=== PATIENT | female | born 1960 | race Caucasian/White ===

== ENCOUNTER 2017-02-22 15:51 | Inpatient (IN) | payer OTHER ==
--- NOTE | ~2017-02-22 | DS ---
Discharge Summary [facility] [address] [place]. [address] NAME: GIDEON PRINGLE : 62 STATUS : DIS IN PAT#: [id number] AGE: 56 ADM/REG DATE : 02/22/17 MR#: [id number] REPORT SERV DATE: 02/26/17 DICTATED BY: HALLE JUDGE DATE: 02/25/17 REPORT STATUS : Draft TRANSCRIBED BY: MODL DATE: 02/25/17 ADMISSION DATE: 02/22/2017 DISCHARGE DATE: 02/25/2017 DISCHARGE DIAGNOSES: 1. Acute heart failure systolic dysfunction, combined right ventricle and left ventricular dysfunction. She was treated with diuretics. 2. Tobacco abuse. 3. Atrial fibrillation, rate controlled. 4. Obesity. 5. Hard to treat with no primary care physician or insurance. PROCEDURE: Echocardiogram was performed that showed mildly decreased left ventricular systolic function with an estimated ejection fraction of 45%. Also had a decreased right ventricular systolic dysfunction with moderate tricuspid regurg. HISTORY OF PRESENT ILLNESS: This is a 56-year-old female patient, who came to the hospital with short of breath. Please see dictated H and P. HOSPITAL COURSE: She was admitted to the hospital with a new finding of atrial fibrillation and heart failure. She was told by a physician in the past, she had heart failure and also hypertension; however, did not continue the medication and also does not have any primary care physician. Unfortunately, she continued to smoke cigarettes. At this time she was found to have heart failure confirmed. She was treated with IV Bumex 1 mg every 8 hours, and for last three days she has been well diuresed. She is not requiring any oxygen. She has symptoms treated. We are going to continue the Lasix 40 mg once in the morning time as a regular medication. Atrial fibrillation was noted and rate control was considered to be the treatment plan. She is taking metoprolol and is tolerating well. Anticoagulation was decided to be Xarelto with the help of Inpatient Pharmacy from here, and we are going to also provide [facility]. Therefore, the Xarelto two-month supply is given from the hospital for anticoagulation issue. She voiced that she will stop smoking after a long discussion with the patient regarding smoking cessation and cardiovascular risks. Overall, as she had a significant improvement and maximized inpatient benefit, the patient will be discharged home in stable condition to continue maximized medical treatment. DISCHARGE MEDICATIONS: 1. Aspirin 81 mg once a day. 2. Lipitor 10 mg once a day. 3. Furosemide 40 mg once a day. 4. Lisinopril 5 mg once a day. 5. Lopressor 50 mg twice a day. Discharge Summary [facility] [address] [place]. [address] NAME: GIDEON PRINGLE : 62 STATUS : DIS IN PAT#: [id number] AGE: 56 ADM/REG DATE : 02/22/17 MR#: [id number] REPORT SERV DATE: 02/26/17 DICTATED BY: HALLE JUDGE DATE: 02/25/17 REPORT STATUS : Draft TRANSCRIBED BY: CASIE DATE: 02/25/17 6. Potassium 40 mEq once a day. 7. Nicotine patch given for two-week supply. TIME SPENT: More than 30 minutes on discharge, coordination, and patient education. DISPOSITION: The patient is discharged to home in stable condition. Need to follow up at [facility]. EKL/MODL Halle Judge M.D. / [id number] CC: Halle Judge M.D.
--- NOTE | ~2017-02-22 | HP ---
History And Physical [facility] [id number] [place]. [address] NAME: GIDEON PRINGLE : 62 STATUS : ADM IN [facility]#: [id number] AGE: 56 ADM/REG DATE : 02/22/17 MR#: [id number] REPORT SERV DATE: 02/23/17 DICTATED BY: JORY ROCHE DATE: 02/22/17 REPORT STATUS : Draft TRANSCRIBED BY: MODL DATE: 02/22/17 DATE OF ADMISSION: 02/22/2017 CHIEF COMPLAINT: Shortness of breath with a rapid heart rate. HISTORY OF PRESENT ILLNESS: The patient is a 56-year-old female with past medical history, the patient does report hypertension and possibly heart failure who presents after having months of swelling, epigastric pain, shortness of breath and feeling of fast heart rate. The patient reports that pain has been above her belt line. It has been constant, moderate, non-radiating associated with shortness of breath, swelling. The patient reports that she has had bilateral lower extremity edema. Activity is worsened with shortness of breath and relieved by nothing. No improving symptoms. The patient has reported that she has had a rapid heart rate for months now and as far as seven years ago, she was also told she had heart failure but since she did have not insurance was never able to follow up with anybody. REVIEW OF SYSETMS: For additional review of systems; GENERAL: No fevers or chills. EYES: No eye pain or visual changes. ENT: Does have poor dentition with loss of all of her teeth as they have slowly broken off and could be source of where she thought could be infection at times but no current dental pain or sore throat. NEURO: No headache or confusion. SKIN: No rashes or bruising. RESPIRATORY: Positive shortness of breath with dyspnea on exertion where she cannot even walk to the bathroom without getting short of breath. CV: No chest pain, but fast heart rate. Bilateral edema. Three pillow orthopnea, decreased exercise tolerance. GI: Soft. Does have mild abdominal discomfort but no nausea, vomiting. No dark stools. : No dysuria or hematuria. MUSCULOSKELETAL: No myalgias or arthralgias above baseline but does have chronic back pain. ENDO: No increased fatigue or polyuria. HEME: No bleeding or bruising. IMMUNOLOGIC: No rhinorrhea. PSYCH: Mild anxiety, depression at times that have been chronic. PAST MEDICAL HISTORY: The patient reports that she does not go to doctor so she does not know but has been told in the past, she has hypertension and heart failure. PAST SURGICAL HISTORY: Gallbladder, laparoscopy for ovarian cyst and urethra enlarged when she was young. SOCIAL HISTORY: She is one pack per day smoker down to half pack per day. Started at age 38 approximately 18 years ago due to anxiety, approximately drinks 3 beers a week but no history of withdrawals. Denies any illicits at this time. History And Physical [place] [id number] [facility] [place]. [address] NAME: GIDEON PRINGLE : 62 STATUS : ADM IN [facility]#: [id number] AGE: 56 ADM/REG DATE : 02/22/17 MR#: [id number] REPORT SERV DATE: 02/23/17 DICTATED BY: JORY ROCHE DATE: 02/22/17 REPORT STATUS : Draft TRANSCRIBED BY: CASIE DATE: 02/22/17 FAMILY HISTORY: Of hypertension, alcoholism, and anxiety. ALLERGIES: SHE DOES HAVE SULFA ALLERGY. MEDICATIONS: Include aspirin. PHYSICAL EXAMINATION: VITAL SIGNS: The patient blood pressure initially was 175/118, pulse was initially 158 currently down to 129/98 with a pulse of 97, temperature 97.8, respirations 18, and O2 sats 100% on room air. GENERAL: No acute distress. Obese. EYES: No scleral icterus. EOMI. ENT: Loss of all dentition with very poor dental bridges. RESPIRATORY: Rales bilaterally, equal chest expansion. No wheezes. CV: Irregularly irregular on diltiazem drip with bilateral edema, systolic ejection murmur. Mild JVD. GI: Does have mild increased tenderness to palpation in upper wall with what appears to be hernia defect, not currently reproducible. No organomegaly. : Deferred but does have Corea. MUSCULOSKELETAL: Moves all extremities x4. SKIN: Warm and dry. HEME: No bleeding or bruising. NEURO: Alert and oriented, moves all extremities x4. PSYCH: Mildly anxious. LABS: Urinalysis with moderate blood, but does have Corea, negative leukocyte esterase and nitrites. BNP 404.9. BMP grossly within normal limits with a BUN and creatinine of 7 and 0.91, troponin negative. CBC grossly within normal limits. Mildly elevated MCV of 100, INR 1.2. EKG; atrial fibrillation with RVR, rate of 143, QTc 484. Chest x-ray; cardiomegaly with basilar congestion left greater than right. Official read still pending. ASSESSMENT AND PLAN: 1. Atrial fibrillation with RVR. 2. Likely congestive heart failure exacerbation. 3. Chronic back pain. 4. Tobacco use. 5. Anxiety. 6. Hypertension. 7. Abdominal pain. PLAN: 1. For atrial fibrillation with RVR, she is reporting symptoms for months. Start on metoprolol, currently on diltiazem drip. Lytes currently at goal. Check TSH, check History And Physical [address] [address] NAME: GIDEON PRINGLE : 62 STATUS : ADM IN PAT#: [id number] AGE: 56 ADM/REG DATE : 02/22/17 MR#: [id number] REPORT SERV DATE: 02/23/17 DICTATED BY: JORY ROCHE DATE: 02/22/17 REPORT STATUS : Draft TRANSCRIBED BY: CASIE DATE: 02/22/17 UDS. 2. CHF exacerbation. Reports 2-3 pillow orthopnea, does have a CHADS-VASc score approximately 3 for atrial fibrillation. She will need anticoagulation prior to discharge. She was told had she had heart failure approximately seven years ago but did not follow up secondary to insurance reasons. Case Management assist heart failure protocol initiated. We will check echocardiogram, start YAZMIN inhibitor, beta maegan, aspirin, and statin. 3. Chronic back pain, p.r.n. 4. Tobacco use. Discussed and also placed nicotine patch. 5. Anxiety. Check TSH, nicotine patch. 6. Hypertension, diltiazem drip started, YAZMIN inhibitor, beta maegan titrate as needed. 7. Abdominal pain. Does have central obesity. New abdominal rash. We will monitor. Check plain film. All questions answered to the patient at bedside. I anticipate greater than two midnight inpatient stay. DDN/SOTOL Jory Roche MD / [id number] CC: Halle Watkins M.D.
[2017-02-22 18:37] LABS: BASOPHILS 0.3 %; BASOPHILS ABSOLUTE 0.02 10/3/uL (0.0-0.16); EOSINOPHILS 0.8 %; EOSINOPHILS ABSOLUTE 0.05 10/3/uL (0.0-0.53); HEMATOCRIT 41.6 % (36.0-48.0); HEMOGLOBIN 14.1 g/dL (12.0-16.0); IMMATURE GRANULOCYTES 0.2 %; IMMATURE GRANULOCYTES ABSOLUTE 0.01 10/3/uL (0.0-0.11); LYMPHOCYTES 20.2 %; LYMPHOCYTES ABSOLUTE 1.19 10/3/uL (0.67-4.30); MEAN CORPUS HGB CONC 33.9 g/dL (32.0-36.0); MEAN CORPUSCULAR HEMOGLOB 33.9 pg (26.0-34.0); MEAN PLATELET VOLUME 10.3 fL (9.2-13.0); MONOCYTES 10.9 %; MONOCYTES ABSOLUTE 0.64 10/3/uL (0.21-1.20); NEUTROPHILS 67.6 %; NEUTROPHILS ABSOLUTE 3.98 10/3/uL (2.02-8.40); PLATELET COUNT 150 10/3/uL (150-400); RBC DISTRIBUTION WIDTH 14.9 % (12.0-16.0); RED CELL COUNT 4.16 10/6/uL (4.0-5.6); WHITE BLOOD CELLS 5.9 10/3/uL (4.5-10.5)
[2017-02-22 18:39] LABS: MANUAL DIFF NO %
[2017-02-22 18:46] LABS: INTERNATIONAL NORMAL RATI 1.2 UNITS (-)
[2017-02-22 18:47] LABS: PARTIAL THROMBO TIME 30.1 SEC (22.5-37.2)
[2017-02-22 18:54] LABS: BUN (BLOOD UREA NITROGEN) 7 MG/DL (6-23); CALCIUM, SERUM 9.4 MG/DL (8.5-10.4); CHEST PAIN PROFILE TAT 0 Hrs 21 Mins; CHLORIDE, SERUM 105 MMOL/L (96-112); CO2 (CARBON DIOXIDE) 25 MMOL/L (24-34); CREATININE 0.91 MG/DL (0.55-1.02); GFR AFRICAN AMERICAN 82 ML/MIN (>=60); GFR NON AFRICAN AMERICAN 71 ML/MIN (>=60); GLUCOSE, SERUM 98 MG/DL (60-99); POTASSIUM, SERUM 4.5 MMOL/L (3.5-5.3); SODIUM, SERUM 138 MMOL/L (135-148); TROPONIN I <0.02 NG/ML (<0.05)
[2017-02-22] MEDS ORDERED: HALF81 PO (20:16)
[2017-02-22 20:53] LABS: ASCORBIC ACID (UR NOT ORDER) NEG (NEG); BILIRUBIN, URINE NEGATIVE (NEG); ER URINALYSIS TAT 0 Hrs 08 Mins; KETONE, URINE NEGATIVE (NEG); LEUKOCYTE ESTERASE(NOT OR NEG (NEG); NITRITE (URINE) NEG (NEG); WBC (NOT ORDERED) (RFLEX) < 1 (0-5)
[2017-02-23 02:50] LABS: CALCIUM, SERUM 8.9 MG/DL (8.5-10.4); CHLORIDE, SERUM 105 MMOL/L (96-112); CO2 (CARBON DIOXIDE) 24 MMOL/L (24-34); GFR AFRICAN AMERICAN 83 ML/MIN (>=60); GFR NON AFRICAN AMERICAN 72 ML/MIN (>=60); SODIUM, SERUM 138 MMOL/L (135-148); TROPONIN I <0.02 NG/ML (<0.05)
[2017-02-23 02:52] LABS: BUN (BLOOD UREA NITROGEN) 11 MG/DL (6-23); GLUCOSE, SERUM 122 MG/DL (60-99); POTASSIUM, SERUM 3.5 MMOL/L (3.5-5.3)
[2017-02-23 05:43] LABS: BASOPHILS 0.4 %; BASOPHILS ABSOLUTE 0.02 10/3/uL (0.0-0.16); EOSINOPHILS 0.8 %; EOSINOPHILS ABSOLUTE 0.04 10/3/uL (0.0-0.53); HEMATOCRIT 38.6 % (36.0-48.0); IMMATURE GRANULOCYTES 0.2 %; IMMATURE GRANULOCYTES ABSOLUTE 0.01 10/3/uL (0.0-0.11); LYMPHOCYTES 16.8 %; LYMPHOCYTES ABSOLUTE 0.88 10/3/uL (0.67-4.30); MEAN CORPUS HGB CONC 33.7 g/dL (32.0-36.0); MEAN CORPUSCULAR HEMOGLOB 33.6 pg (26.0-34.0); MEAN CORPUSCULAR VOLUME 99.7 fL (80-100); MEAN PLATELET VOLUME 10.6 fL (9.2-13.0); MONOCYTES 13.7 %; MONOCYTES ABSOLUTE 0.72 10/3/uL (0.21-1.20); NEUTROPHILS 68.1 %; NEUTROPHILS ABSOLUTE 3.58 10/3/uL (2.02-8.40); PLATELET COUNT 138 10/3/uL (150-400); RBC DISTRIBUTION WIDTH 14.9 % (12.0-16.0); RED CELL COUNT 3.87 10/6/uL (4.0-5.6); WHITE BLOOD CELLS 5.3 10/3/uL (4.5-10.5)
[2017-02-23 05:44] LABS: MANUAL DIFF NO %
[2017-02-23 07:52] LABS: AMPHETAMINES (NOT ORD) NEG (NEG); BARBITURATES (NOT ORDERED NEG (NEG); BENZODIAZEPINES (NOT ORD) NEG (NEG); CANNABINOIDS (THC) NEG (NEG); COCAINE (NOT ORDERED) NEG (NEG); OPIATES NEG (NEG); PHENCYCLIDINE(PCP) NEG (NEG); TRICYCLICS NEG (NEG)
[2017-02-23 13:21] LABS: BASOPHILS 0.2 %; BASOPHILS ABSOLUTE 0.01 10/3/uL (0.0-0.16); EOSINOPHILS 0.8 %; EOSINOPHILS ABSOLUTE 0.05 10/3/uL (0.0-0.53); HEMATOCRIT 38.3 % (36.0-48.0); HEMOGLOBIN 12.9 g/dL (12.0-16.0); IMMATURE GRANULOCYTES 0.2 %; IMMATURE GRANULOCYTES ABSOLUTE 0.01 10/3/uL (0.0-0.11); LYMPHOCYTES 11.9 %; LYMPHOCYTES ABSOLUTE 0.74 10/3/uL (0.67-4.30); MEAN CORPUS HGB CONC 33.7 g/dL (32.0-36.0); MEAN CORPUSCULAR HEMOGLOB 33.6 pg (26.0-34.0); MEAN CORPUSCULAR VOLUME 99.7 fL (80-100); MEAN PLATELET VOLUME 10.4 fL (9.2-13.0); MONOCYTES 12.6 %; MONOCYTES ABSOLUTE 0.78 10/3/uL (0.21-1.20); NEUTROPHILS 74.3 %; NEUTROPHILS ABSOLUTE 4.61 10/3/uL (2.02-8.40); PLATELET COUNT 140 10/3/uL (150-400); RED CELL COUNT 3.84 10/6/uL (4.0-5.6); WHITE BLOOD CELLS 6.2 10/3/uL (4.5-10.5)
[2017-02-23 13:22] LABS: MANUAL DIFF NO %
[2017-02-23 13:45] LABS: ALBUMIN 3.5 G/DL (3.5-5.0); ALKALINE PHOSPHATASE 58 U/L (45-117); BUN (BLOOD UREA NITROGEN) 9 MG/DL (6-23); CALCIUM, SERUM 9.1 MG/DL (8.5-10.4); CHLORIDE, SERUM 104 MMOL/L (96-112); CO2 (CARBON DIOXIDE) 23 MMOL/L (24-34); CREATININE 0.84 MG/DL (0.55-1.02); FREE T4 1.28 NG/DL (0.76-1.46); GFR AFRICAN AMERICAN 91 ML/MIN (>=60); GFR NON AFRICAN AMERICAN 78 ML/MIN (>=60); GLOBULIN 3.4 G/DL (2.5-4.1); GLUCOSE, SERUM 117 MG/DL (60-99); PHOSPHORUS, SERUM 3.6 MG/DL (2.5-4.5); POTASSIUM, SERUM 3.8 MMOL/L (3.5-5.3); SGPT(ALT) 34 U/L (5-65); SODIUM, SERUM 138 MMOL/L (135-148); TOTAL BILIRUBIN 1.6 MG/DL (0-1.2); TOTAL PROTEIN 6.9 G/DL (6.0-8.5); TROPONIN I <0.02 NG/ML (<0.05)
[2017-02-23 13:49] LABS: SGOT(AST) 25 U/L (5-40)
[2017-02-23 15:47] LABS: PROCALCITONIN <0.05 ng/mL (<0.5)
[2017-02-24 06:10] LABS: ALBUMIN 3.3 G/DL (3.5-5.0); BUN (BLOOD UREA NITROGEN) 10 MG/DL (6-23); CALCIUM, SERUM 8.8 MG/DL (8.5-10.4); CHLORIDE, SERUM 103 MMOL/L (96-112); CO2 (CARBON DIOXIDE) 27 MMOL/L (24-34); CREATININE 0.97 MG/DL (0.55-1.02); GFR AFRICAN AMERICAN 76 ML/MIN (>=60); GFR NON AFRICAN AMERICAN 66 ML/MIN (>=60); GLUCOSE, SERUM 117 MG/DL (60-99); POTASSIUM, SERUM 3.4 MMOL/L (3.5-5.3); SODIUM, SERUM 141 MMOL/L (135-148)
[2017-02-24 06:11] LABS: BASOPHILS 0.2 %; BASOPHILS ABSOLUTE 0.01 10/3/uL (0.0-0.16); EOSINOPHILS 0.8 %; EOSINOPHILS ABSOLUTE 0.04 10/3/uL (0.0-0.53); HEMATOCRIT 40.1 % (36.0-48.0); HEMOGLOBIN 13.5 g/dL (12.0-16.0); IMMATURE GRANULOCYTES 0.2 %; IMMATURE GRANULOCYTES ABSOLUTE 0.01 10/3/uL (0.0-0.11); LYMPHOCYTES 23.3 %; LYMPHOCYTES ABSOLUTE 1.13 10/3/uL (0.67-4.30); MEAN CORPUS HGB CONC 33.7 g/dL (32.0-36.0); MEAN CORPUSCULAR HEMOGLOB 33.8 pg (26.0-34.0); MEAN CORPUSCULAR VOLUME 100.5 fL (80-100); MEAN PLATELET VOLUME 10.6 fL (9.2-13.0); MONOCYTES 12.6 %; MONOCYTES ABSOLUTE 0.61 10/3/uL (0.21-1.20); NEUTROPHILS 62.9 %; NEUTROPHILS ABSOLUTE 3.06 10/3/uL (2.02-8.40); PHOSPHORUS, SERUM 4.6 MG/DL (2.5-4.5); PLATELET COUNT 146 10/3/uL (150-400); RED CELL COUNT 3.99 10/6/uL (4.0-5.6); WHITE BLOOD CELLS 4.9 10/3/uL (4.5-10.5)
[2017-02-24 06:13] LABS: MANUAL DIFF NO %
[2017-02-25 04:49] LABS: ALBUMIN 3.4 G/DL (3.5-5.0); BUN (BLOOD UREA NITROGEN) 11 MG/DL (6-23); CALCIUM, SERUM 9.1 MG/DL (8.5-10.4); CHLORIDE, SERUM 98 MMOL/L (96-112); CO2 (CARBON DIOXIDE) 29 MMOL/L (24-34); CREATININE 0.97 MG/DL (0.55-1.02); GFR AFRICAN AMERICAN 76 ML/MIN (>=60); GFR NON AFRICAN AMERICAN 66 ML/MIN (>=60); PHOSPHORUS, SERUM 3.7 MG/DL (2.5-4.5); POTASSIUM, SERUM 3.5 MMOL/L (3.5-5.3); SODIUM, SERUM 136 MMOL/L (135-148)
[2017-02-25 04:56] LABS: GLUCOSE, SERUM 92 MG/DL (60-99)
[2017-02-25] MEDS ORDERED: LIPITOR10 PO (11:42)
[2017-02-25] MEDS ORDERED: PRIN5 PO (11:43)
[2017-02-25] MEDS ORDERED: LOP50 PO (11:44)
[2017-02-25] MEDS ORDERED: L40 PO (11:46)
[2017-02-25] MEDS ORDERED: HABIT21 TOP (11:46)
[2017-02-25] MEDS ORDERED: KLOR-CON20 MEQ PO (11:48)
[2017-02-25] MEDS ORDERED: XARELTO20 MG PO (11:49)
[2017-03-02 23:01] LABS: THIAMINE <1.5 nmol/L (()); THIAMINE MONOPHOSPHATE <0.5 nmol/L (())
== END 2017-02-25 13:39 | disposition home or self-care (01) | DRG 308 ==
LOC: ER 15:51 → 5NO 22:07
PROVIDERS: Emergency Medicine; Internal Medicine; Student in an Organized Health Care Education/Training Program
DX: I48.91 Unspecified atrial fibrillation (principal); I50.23 Acute on chronic systolic (congestive) heart failure; F41.9 Anxiety disorder, unspecified; I11.0 Hypertensive heart disease with heart failure; M54.9 Dorsalgia, unspecified; F17.210 Nicotine dependence, cigarettes, uncomplicated; E66.9 Obesity, unspecified; Z68.39 Body mass index [BMI] 39.0-39.9, adult
CPT/HCPCS: 71010; 71020; 74020; 80048; 80053; 80069; 80305; 81001; 82746; 83735; 83880; 84100; 84145; 84425; 84439; 84443; 84484; 85025; 85610; 85730; 93005; 94640; 96374; 96375; 99291; A9270-GY; C8929; Q9957